=== PATIENT | female | born 1985 | race African-American/Black ===

== ENCOUNTER 2016-09-09 17:50 | Inpatient (IN) | payer MEDICAID ==
[~2016-09-09] VITALS: Ht 160 cm; Wt 67.0 kg
[2016-09-09 18:23] VITALS: Ht 160 cm; Wt 67.0 kg
[2016-09-09] MEDS ORDERED: CEFAZOLIN 2 GM/50 ML (PMX) 50 ML IV SCH (18:30)
[2016-09-09] MEDS ORDERED: OXYTOCIN 30 UNITS/LR 500 ML IV SCH (18:30)
[2016-09-09] MEDS ORDERED: CARBOPROST 250 MCG INJ IM PRN (18:30)
[2016-09-09] MEDS ORDERED: METHYLERGONOVINE 0.2 MG INJ IM PRN (18:30)
[2016-09-09] MEDS ORDERED: OXYTOCIN 30 UNITS/LR 500 ML IV PRN (18:30)
[2016-09-09] MEDS ORDERED: MISOPROSTOL 200 MCG TAB PR PRN (18:30)
[2016-09-09 19:00] LABS: INR 0.97; PARTIAL THROMBOPLASTIN TIME 26.8 Sec (25.0-35.0); PROTIME 12.9 Sec (12.2-14.2)
[2016-09-09 19:02] LABS: BASOPHILS % 0.3 % (0.0-2.0); EOSINOPHILS # 0.2 10^3/ul (0.0-0.5); EOSINOPHILS % 2.8 % (0.0-7.0); HEMATOCRIT 38.7 % (37.0-47.0); HEMOGLOBIN 12.6 g/dl (12.0-16.0); LYMPHOCYTES # 1.4 10^3/ul (0.8-2.9); MEAN CORPUSCULAR HEMOGLOBIN 27.2 pg (29.0-33.0); MEAN CORPUSCULAR HGB CONC 32.7 g/dl (32.0-37.0); MEAN CORPUSCULAR VOLUME 83.4 fl (82.0-101.0); MONOCYTE # 0.5 10^3/ul (0.3-0.9); MONOCYTES % 7.6 % (0.0-11.0); NEUTROPHIL # 4.5 10^3/ul (1.6-7.5); NEUTROPHILS % 68.3 % (39.0-77.0); PLATELET COUNT 124 10^3/UL (140-440); RED BLOOD COUNT 4.65 10^6/ul (4.20-5.40); RED CELL DISTRIBUTION WIDTH 13.7 % (11.5-14.5); UNCORRECTED WBC 6.5 10^3/ul (4.8-10.8); WHITE BLOOD COUNT 6.5 10^3/ul (4.8-10.8)
[2016-09-09 19:04] LABS: CONDITION 1; LH ANALYZER COMMENTS 1; SUSPECT 1
[2016-09-09] MEDS ORDERED: LACTATED RINGER'S 1,000 ML IV ONE ×2 (19:30→19:42)
[2016-09-09] MEDS ORDERED: CITRIC ACID/NA CITRATE 30 ML CUP ONE (19:42)
[2016-09-09] MEDS ORDERED: ONDANSETRON 4 MG INJ ONE (19:43)
[2016-09-09] MEDS ORDERED: ONDANSETRON 4 MG INJ IV ONE (20:00)
[2016-09-09] MEDS ORDERED: CITRIC ACID/NA CITRATE 30 ML CUP PO ONE (20:00)
[2016-09-09] MEDS ORDERED: FENTAnyl 50 MCG/ML VIAL ONE (20:18)
[2016-09-09] MEDS ORDERED: morphine SULFATE/PF (10 MG/10 ML) INJ ONE (20:19)
[2016-09-09] MEDS ORDERED: METOCLOPRAMIDE 10 MG INJ ONE (20:32)
[2016-09-09] MEDS ORDERED: EPHEDrine SULFATE 50 MG/5 ML SYG ONE (20:37)
[2016-09-09] MEDS ORDERED: DIPHENHYDRAMINE 50 MG INJ ONE (20:39)
[2016-09-09] MEDS ORDERED: OXYTOCIN 30 UNITS/LR 500 ML IV ONE (20:41)
--- NOTE | 2016-09-09 21:09 | PREOPHP ---
DATE OF ADMISSION: 09/09/2016 HISTORY OF PRESENT ILLNESS: A 31-year-old female 2, para 1, estimated date of delivery, , at 38 weeks gestation is admitted for delivery per recommendation of perinatologist due to intrauterine growth restriction. PAST MEDICAL HISTORY: History of syphilis for which the patient was treated earlier in . PAST SURGICAL HISTORY: section. ALLERGIES: NO KNOWN ALLERGIES. FAMILY HISTORY: Noncontributory. PHYSICAL EXAMINATION: VITAL SIGNS: The patient is afebrile. Vital signs stable. HEAD, NECK, AND CHEST: Within normal limits. ABDOMEN: Soft, nontender and gravid. EXTREMITIES: Within normal limits. NEUROLOGIC: Within normal limits. IMPRESSION: 1. at 38 weeks with previous section. 2. Intrauterine growth restriction. 3. The patient does not desire a trial of labor. PLAN: Delivery by repeat section. Risks, benefits, and alternatives of the procedure were explained to patient. The patient said she understood and gave informed consent for the procedure. Dictated By: PEARL NOLAN/JENNIFER Conf#: [id number] DID#: [id number]
[2016-09-09] MEDS ORDERED: morphine 2 MG INJ IV PRN ×2 (21:30)
[2016-09-09] MEDS ORDERED: ONDANSETRON 4 MG INJ IV PRN (21:30)
[2016-09-09] MEDS ORDERED: DIPHENHYDRAMINE 50 MG INJ IV PRN (21:30)
[2016-09-09] MEDS ORDERED: PROCHLORPERAZINE 10 MG INJ IV PRN (21:30)
[2016-09-09] MEDS ORDERED: NALOXONE (0.4 MG/ML) INJ IV PRN (21:30)
--- NOTE | 2016-09-09 22:26 | OPR ---
DATE OF OPERATION: 09/09/2016 PREOPERATIVE DIAGNOSES: at 38 weeks with previous section and intrauterine growth restriction. POSTOPERATIVE DIAGNOSES: at 38 weeks with previous section and intrauterine growth restriction. OPERATION PERFORMED: Repeat low transverse section. SURGEON: Pearl Cueto MD TROLLEY CAR MECHANIC: Neno Albrecht MD ANESTHESIA: Spinal. ANESTHESIOLOGIST: Marcelle Guerrier MD PROCEDURE: The patient was taken to the operating room and placed on the operating table. After successful spinal anesthesia was given, the patient ___ _ was placed in supine position. The area was prepared and draped in the usual sterile fashion. Spinal anesthesia was tested and was satisfactory. Using scalpel, Pfannenstiel incision was made about 2 fingerbreadths above the symphysis pubis. The incision was carried to the fascia. The fascia was incised and extended bilaterally with Crowder scissors. Two Kochers were used to separate the fascia from the muscle. The muscle was dissected on down to peritoneum. The peritoneum was secured with 2 Kellys and incised with Metzenbaum scissors. Using scalpel, a small transverse incision was made in the lower segment of uterus. Upon entering the uterine cavity, bandage scissors were inserted to extend the incision bilaterally, curved up. Baby was delivered from cephalic presentation. After suctioning clear of amniotic fluid , baby was handed off to team in attendance. Apgars were 8 and 9. The placenta was delivered without difficulty. The uterus was closed with #1 Monocryl continuous locked. After assuring hemostasis, both ovaries and tubes were inspected, all looked normal. The peritoneal cavity was irrigated with warm saline. The peritoneum was closed with 2-0 Vicryl continuous. The fascia was closed with #1 Vicryl continuous in 2 segments. The skin was closed with marti. ESTIMATED BLOOD LOSS: 500 mL COMPLICATIONS: None. COUNTS: Lap, instrument and needle counts were correct x2. Dictated By: PEARL CUETO MD GD/NTS Conf#: [id number] DID#: [id number] MTDD
--- NOTE | 2016-09-09 23:53 | DELSUM ---
Delivery Summary A-C Datetime Report Generated by CPN: 09/09/2016 23:53 DELIVERY PERSONNEL Picking Crew Supervisor: [place], Janet Xiomara MATERNAL INFORMATION Delivery Anesthesia: Spinal Medications in Delivery: SEE ANESTHESIA Estimated Blood Loss (ml): 500 Placenta Cultured: Yes Maternal Complications: Other Other Maternal Complications: HX RPR POSITIVE LABOR SUMMARY EDC: 09/23/2016 00:00 No. Babies in Womb: 1 Attempted: No Labor Anesthesia: Intrathecal LABOR INFORMATION Reason for Induction: Not Applicable Oxytocin: N/A Group B Beta Strep: Negative Group B Beta Strep: Not Done Antibiotics # of Doses: 1 Antibiotics Time of Last Dose: 2030 Steroids Given: None Reason Steroids Not Administered: Not Applicable MEMBRANES Membranes Rupture Method: Artificial Rupture of Membranes: 09/09/2016 20:51 Length of Rupture (hr): 0.02 Amniotic Fluid Color: Clear Amniotic Fluid Amount: Moderate Amniotic Fluid Odor: Normal STAGES OF LABOR Stage 3 hr: 0 Stage 3 min: 1 CSECTION DELIVERY Primary Indication: Repeat Elective CSection Urgency: Elective CSection Incidence: Repeat Labor: No Labor Elective: Elective CSection Incision: Lower Uterine Transverse BABY A INFORMATION Delivery Date/Time: 09/09/2016 20:52 Method of Delivery: Born in Route : No : N/A Forceps: N/A Vacuum Extraction: N/A Shoulder Dystocia : N/A SHOULDER DYSTOCIA BABY A Infant Delivery Date/Time: 09/09/2016 20:52 PRESENTATION/POSITION BABY A Presentation: Cephalic Cephalic Presentation: Vertex Vertex Position: Left Occipital Anterior Breech Presentation: N/A PLACENTA INFORMATION BABY A Placenta Delivery Time : 09/09/2016 20:53 Placenta Method of Delivery: Manual Removal Placenta Status: Delivered SCORES BABY A Heart Rate 1 min: >100 bpm Resp Effort 1 min: Good Cry Reflex Irritability 1 min: Cough/Sneeze/Pulls Away Muscle Tone 1 min: Active Motion Color 1 min: Blue/Pale Resuscitation Effort 1 min: Tactile Stimulation SCORE 1 MIN: 8 Heart Rate 5 min: >100 bpm Resp Effort 5 min: Good Cry Reflex Irritability 5 min: Cough/Sneeze/Pulls Away Muscle Tone 5 min: Active Motion Color 5 min: Body [place], Extremit Blue Resuscitation Effort 5 min: Tactile Stimulation SCORE 5 MIN: 9 INFORMATION BABY A Gestational Age at Delivery: 38.0 Gestational Status: Early Term- 37- 38.6 Weeks Infant Outcome : Liveborn Condition : Stable Sex: Male IDENTIFICATION/MEDS BABY A ID Band Number: [id number] ID Band Location: Right Leg; Left Arm Sensor Applied: Yes Sensor Number: [id number] Sensor Location : Cord Clamp Vitamin K Given : Not Given Erythromycin Given: Not Given WEIGHT/LENGTH BABY A Birthweight (gm): 2525 Weight (lb): 5 Weight (oz): 9 Infant Length (in): 18.00 Length (cm): 45.72 CORD INFORMATION BABY A No. Cord Vessels: 3 Nuchal Cord : N/A Cord Blood Taken: Yes Suction: Mouth; Nose ASSESSMENT BABY A Infant Complications: None Physical Findings at Delivery: Within Normal Limits Infant Respirations: Appears Normal Spirits Model/ALS Called : No Infant Care By: MICHAEL GOMEZ RN Transferred To: Remains with Mother
--- NOTE | 2016-09-10 00:10 | DELSUM ---
Delivery Summary A-C Datetime Report Generated by CPN: 09/10/2016 00:09 DELIVERY PERSONNEL Tire Retreader: [place], Janet Xiomara MATERNAL INFORMATION Delivery Anesthesia: Spinal Medications in Delivery: SEE ANESTHESIA Estimated Blood Loss (ml): 500 Placenta Cultured: Yes Maternal Complications: Other Other Maternal Complications: HX RPR POSITIVE LABOR SUMMARY EDC: 09/23/2016 00:00 No. Babies in Womb: 1 Attempted: No Labor Anesthesia: Intrathecal LABOR INFORMATION Reason for Induction: Not Applicable Oxytocin: N/A Group B Beta Strep: Negative Group B Beta Strep: Not Done Antibiotics # of Doses: 1 Antibiotics Time of Last Dose: 2030 Steroids Given: None Reason Steroids Not Administered: Not Applicable MEMBRANES Membranes Rupture Method: Artificial Rupture of Membranes: 09/09/2016 20:51 Length of Rupture (hr): 0.02 Amniotic Fluid Color: Clear Amniotic Fluid Amount: Moderate Amniotic Fluid Odor: Normal STAGES OF LABOR Stage 3 hr: 0 Stage 3 min: 1 CSECTION DELIVERY Primary Indication: Repeat Elective CSection Urgency: Elective CSection Incidence: Repeat Labor: No Labor Elective: Elective CSection Incision: Lower Uterine Transverse BABY A INFORMATION Delivery Date/Time: 09/09/2016 20:52 Method of Delivery: Born in Route : No : N/A Forceps: N/A Vacuum Extraction: N/A Shoulder Dystocia : N/A SHOULDER DYSTOCIA BABY A Infant Delivery Date/Time: 09/09/2016 20:52 PRESENTATION/POSITION BABY A Presentation: Cephalic Cephalic Presentation: Vertex Vertex Position: Left Occipital Anterior Breech Presentation: N/A PLACENTA INFORMATION BABY A Placenta Delivery Time : 09/09/2016 20:53 Placenta Method of Delivery: Manual Removal Placenta Status: Delivered SCORES BABY A Heart Rate 1 min: >100 bpm Resp Effort 1 min: Good Cry Reflex Irritability 1 min: Cough/Sneeze/Pulls Away Muscle Tone 1 min: Active Motion Color 1 min: Blue/Pale Resuscitation Effort 1 min: Tactile Stimulation SCORE 1 MIN: 8 Heart Rate 5 min: >100 bpm Resp Effort 5 min: Good Cry Reflex Irritability 5 min: Cough/Sneeze/Pulls Away Muscle Tone 5 min: Active Motion Color 5 min: Body [place], Extremit Blue Resuscitation Effort 5 min: Tactile Stimulation SCORE 5 MIN: 9 INFORMATION BABY A Gestational Age at Delivery: 38.0 Gestational Status: Early Term- 37- 38.6 Weeks Infant Outcome : Liveborn Condition : Stable Sex: Male IDENTIFICATION/MEDS BABY A ID Band Number: [id number] ID Band Location: Right Leg; Left Arm Sensor Applied: Yes Sensor Number: [id number] Sensor Location : Cord Clamp Vitamin K Given : Not Given Erythromycin Given: Not Given WEIGHT/LENGTH BABY A Birthweight (gm): 2525 Weight (lb): 5 Weight (oz): 9 Infant Length (in): 18.00 Length (cm): 45.72 CORD INFORMATION BABY A No. Cord Vessels: 3 Nuchal Cord : N/A Cord Blood Taken: Yes Suction: Mouth; Nose ASSESSMENT BABY A Infant Complications: None Physical Findings at Delivery: Within Normal Limits Infant Respirations: Appears Normal Base Manager/ALS Called : No Infant Care By: MICHAEL GOMEZ RN Transferred To: Remains with Mother
--- NOTE | 2016-09-10 00:10 | OPRPT ---
Intraop Record Datetime Report Generated by CPN: 09/10/2016 00:09 Datetime: 09/10/2016 00:02 Sequential Compression Device: Yes Datetime: 09/09/2016 23:47 Sequential Compression Device: Yes Datetime: 09/09/2016 23:32 Sequential Compression Device: Yes Datetime: 09/09/2016 23:18 Sequential Compression Device: Yes Datetime: 09/09/2016 23:06 Sequential Compression Device: Yes Datetime: 09/09/2016 22:48 Sequential Compression Device: Yes Datetime: 09/09/2016 22:36 Sequential Compression Device: Yes Datetime: 09/09/2016 22:17 Sequential Compression Device: Yes Datetime: 09/09/2016 22:02 Sequential Compression Device: Yes Datetime: 09/09/2016 21:47 Sequential Compression Device: Yes Datetime: 09/09/2016 21:35 Sequential Compression Device: Yes Datetime: 09/09/2016 21:06 OR Number: 2 TIMES/PROCEDURE Arrive OR: 09/09/2016 20:15 Depart OR: 09/09/2016 21:30 Anesthesia Start: 09/09/2016 20:05 Anesthesia End: 09/09/2016 21:42 Surgery Start: 09/09/2016 20:46 Surgery End: 09/09/2016 21:28 Preoperative Dx: REPEAT SECTION Surgical Procedure: Section Postoperative Dx: REPEAT SECTION C/S Decision Time: 09/09/2016 18:00 C/S Decision to Incision (min): 166 Uterine Incision: 09/09/2016 20:50 PERSONNEL Surgeon: James Cueto Scrub: Kami Styles Anesthesia Care Provider: Chey Infant Care: See Delivery Summary for Infant Care Providers Others in OR: RT, BABY NURSE, FRIEND OF PT Anesthesia Type: Spinal ASA Level: I RISK FOR INJURY Mode of Arrival: Ambulate Procedure Time Out: Correct Patient Identity; Accurate Procedure Consent Form; Agreement on Procedu re to be Done; Correct Patient Position; Addressed Need to Administer Antibiotics or Fluids for Irri gation; Safety Precautions Based on Patient History or Medication Use; Allergies Reviewed Preoperative Information: Preoperative Checklist Reviewed; Allergies Reviewed; NPO Status Verified RISK FOR ANXIETY/KNOW DEFICIT Emotional Status: Calm/Relaxed; Talkative Interventions: Provided Education Based on Age and Identified Needs; Communicated Patient Concerns to Appropriate Members of the Health Care Team; Explained Sequence of Events and Perioperative Routi ne; Evaluated Response to Instructions RISK FOR PAIN Pain Teaching: Instructed on Pain Scale Pain Scale: 0.0 PREOPERATIVE OUTCOMES Preoperative Outcomes: Verbalizes/Indicates Decreased Anxiety, Ability to [place], Understanding of Pr ocedure and Sequence of Events. Questions Answered; Demonstrates Adequate Pain Management; Verbaliz es Comfort Related to Transfer/Transport RISK FOR INFECTION Skin Pre-Operative Site: Intact Clip: Clip Clip Location: LOWER ABDOMEN Prep: Yes Prep By: CLAUDIA MACKEY RN Prep Solution: Chlorohexadine Catheter: Stoner Catheter Size: 16 Catheter Inserted By: Emmett HARLEY RN Surgical Wound Class: [id number] Dressing Type: Secured Gauze; Other Other Dressing Types: ABD TELFA Risk for Impaired Skin Integrity Position in OR: Supine Bony Prominences Protection: Arms Tucked/Padded Positioning Devices: N/A Risk for Hypothermia Warming Interventions: Warm [place](s); Warm Irrigation Warming Unit Temp Settin.0 Warming Device Number: [id number] Risk for Injury Safety Straps Applied: Legs Sequential Compression Device: Yes Electrosurgical Unit: Yes Electrosurgical Unit Number: [id number] Bipolar Number: [id number] EXP 05/29/2018 Ground Pad Location: Right Anterior Thigh Coag Number: 55 Cut Number: 55 Estimated Blood Loss- OR (ml): 500 1st Count Sponge Count: Correct Needle Count: Correct Blade Count: Correct Instrument Count: Correct 2nd Count Sponge Count: Correct Needle Count: Correct Blade Count: Correct Instrument Count: Not Done 3rd Count Sponge Count: Correct Needle Count: Correct Blade Count: Correct Instrument Count: Not Done Final Count Sponge Count 4: Correct Needle Count 4: Correct Blade Count 4: Correct Instrument Count 4: Correct Surgeon Acknowledged Count: Yes Final Count Resolution: Count Correct Intraoperative Data Equipment: Non-Invasive Blood Pressure; Pulse Oximeter; EKG Blood Products Given: No Implants/Prosthesis Implants/Prosthesis: N/A Grafts: N/A Irrigation Irrigants: NACL; Sterile H2O Irrigation Amount: 1000 ML EACH Specimens Specimens: Yes Specimen Type: Placenta Disposition: PATHOLOGY Cultures Cultures: N/A X-Ray X-Ray Taken: No Postoperative Skin: Warm; Dry Pain Scale: 0 Condition: Alert Temperature: 97.6 Operative Outcomes: Patient's Surgery Performed Using Aseptic Technique and in a Manner to Prevent Cross-Contamination; Skin Remains Smooth, Intact, Non-reddened, Non-irritated, Free of Bruising; Cor e Body Temperature Remains in Expected Range Transfer To: L_D Datetime: 09/09/2016 18:19 Food Allergies/Reactions: none Latex Allergies/Reactions: No Latex Allergies Datetime: 09/09/2016 18:10 Drug Allergies/Reactions: No Known Allergy (09/09/2016)
[2016-09-10] MEDS: KETOROLAC 30 MG INJ IV PRN ×3 (00:12→18:57)
[2016-09-10 00:30] VITALS: BP 141/84; PULSE 73; RESP 21
[2016-09-10] MEDS ORDERED: OXYCODONE/ACETAMINOPHEN (5/325) TAB PO PRN (01:00)
[2016-09-10] MEDS ORDERED: MISOPROSTOL 200 MCG TAB PR PRN (01:00)
[2016-09-10] MEDS ORDERED: CARBOPROST 250 MCG INJ IM PRN (01:00)
[2016-09-10] MEDS ORDERED: METHYLERGONOVINE 0.2 MG INJ IM PRN (01:00)
[2016-09-10] MEDS ORDERED: OXYTOCIN 30 UNITS/LR 500 ML IV PRN (01:00)
[2016-09-10] MEDS: OXYTOCIN 30 UNITS/LR 500 ML IV SCH ×2 (02:29→06:20)
[2016-09-10 04:01] VITALS: BP 118/64; PULSE 79; RESP 20
[2016-09-10 06:30] LABS: EOSINOPHILS # 0.1 10^3/ul (0.0-0.5); EOSINOPHILS % 1.3 % (0.0-7.0); HEMATOCRIT 33.2 % (37.0-47.0); HEMOGLOBIN 10.9 g/dl (12.0-16.0); LYMPHOCYTES # 1.2 10^3/ul (0.8-2.9); LYMPHOCYTES % 15.6 % (15.0-51.0); MEAN CORPUSCULAR HEMOGLOBIN 27.5 pg (29.0-33.0); MEAN CORPUSCULAR HGB CONC 32.8 g/dl (32.0-37.0); MEAN CORPUSCULAR VOLUME 83.8 fl (82.0-101.0); MEAN PLATELET VOLUME 9.5 fl (7.4-10.4); MONOCYTE # 0.5 10^3/ul (0.3-0.9); MONOCYTES % 6.5 % (0.0-11.0); NEUTROPHILS % 76.6 % (39.0-77.0); PLATELET COUNT 104 10^3/UL (140-440); RED BLOOD COUNT 3.96 10^6/ul (4.20-5.40); RED CELL DISTRIBUTION WIDTH 13.6 % (11.5-14.5); UNCORRECTED WBC 7.9 10^3/ul (4.8-10.8); WHITE BLOOD COUNT 7.9 10^3/ul (4.8-10.8)
[2016-09-10 06:35] LABS: CONDITION 1
[2016-09-10] MEDS: LACTATED RINGER'S 1,000 ML IV SCH ×2 (07:49→10:45)
[2016-09-10] MEDS: IBUPROFEN 800 MG TAB PO SCH ×3 (07:49→21:32)
[2016-09-10 08:00] VITALS: BP 113/69; PULSE 79; RESP 18
[2016-09-10 09:35] LABS: RAPID PLASMA REAGIN REACTIVE (NR)
[2016-09-10] MEDS: SENNA/DOCUSATE NA (8.6MG/50MG) TAB PO SCH ×2 (10:43→21:32)
[2016-09-10] MEDS: LANOLIN 7 GM TUBE TOP PRN (10:44)
[2016-09-10 12:00] VITALS: BP 115/63; PULSE 79; RESP 19
[2016-09-10 16:00] VITALS: BP 125/66; PULSE 78; RESP 19
[2016-09-10 19:35] VITALS: BP 119/76; PULSE 73; RESP 18
[2016-09-10] MEDS ORDERED: IBUPROFEN 800 MG TAB PO SCH (22:00)
[2016-09-11] MEDS: LACTATED RINGER'S 1,000 ML IV SCH ×2 (00:55→08:55)
[2016-09-11] MEDS: OXYCODONE/ACETAMINOPHEN (5/325) TAB PO PRN ×3 (03:48→17:20)
[2016-09-11 04:25] VITALS: BP 110/59; PULSE 76; RESP 18
[2016-09-11] MEDS: IBUPROFEN 800 MG TAB PO SCH ×3 (06:16→20:31)
[2016-09-11 06:41] LABS: BASOPHILS % 0.4 % (0.0-2.0); EOSINOPHILS # 0.1 10^3/ul (0.0-0.5); HEMATOCRIT 29.2 % (37.0-47.0); HEMOGLOBIN 9.6 g/dl (12.0-16.0); LYMPHOCYTES # 1.1 10^3/ul (0.8-2.9); LYMPHOCYTES % 16.7 % (15.0-51.0); MEAN CORPUSCULAR HEMOGLOBIN 27.5 pg (29.0-33.0); MEAN CORPUSCULAR HGB CONC 32.8 g/dl (32.0-37.0); MEAN PLATELET VOLUME 9.6 fl (7.4-10.4); MONOCYTE # 0.4 10^3/ul (0.3-0.9); MONOCYTES % 6.3 % (0.0-11.0); NEUTROPHIL # 4.9 10^3/ul (1.6-7.5); NEUTROPHILS % 74.6 % (39.0-77.0); PLATELET COUNT 108 10^3/UL (140-440); RED BLOOD COUNT 3.48 10^6/ul (4.20-5.40); RED CELL DISTRIBUTION WIDTH 13.6 % (11.5-14.5); UNCORRECTED WBC 6.5 10^3/ul (4.8-10.8); WHITE BLOOD COUNT 6.5 10^3/ul (4.8-10.8)
[2016-09-11 06:55] LABS: CONDITION 1
[2016-09-11 08:45] VITALS: BP 114/67; PULSE 83; RESP 18
[2016-09-11] MEDS: SENNA/DOCUSATE NA (8.6MG/50MG) TAB PO SCH ×2 (09:27→20:31)
[2016-09-11 17:20] VITALS: BP 114/67; PULSE 83; RESP 18
[2016-09-11 20:30] VITALS: BP 105/62; PULSE 82; RESP 18
[2016-09-12] MEDS: OXYCODONE/ACETAMINOPHEN (5/325) TAB PO PRN ×4 (00:04→18:03)
[2016-09-12] MEDS: IBUPROFEN 800 MG TAB PO SCH ×3 (05:45→22:26)
[2016-09-12 08:00] VITALS: BP 104/71; PULSE 71; RESP 20
[2016-09-12] MEDS: SENNA/DOCUSATE NA (8.6MG/50MG) TAB PO SCH ×2 (08:25→21:25)
[2016-09-12] MEDS ORDERED: DIPHTH/TET/ACEL PERTUSS (ADULT) 0.5 ML VIAL IM* ONE (09:00)
[2016-09-12] MEDS ORDERED: MAGNESIUM HYDROXIDE 30ML CUP PO ONE (11:00)
[2016-09-12 11:26] VITALS: BP 121/77; PULSE 79; RESP 20
[2016-09-12 17:18] VITALS: BP 127/84; PULSE 95; RESP 20
[2016-09-12 19:50] VITALS: BP 135/82; PULSE 68; RESP 19
[2016-09-12] MEDS: LANOLIN 7 GM TUBE TOP PRN (21:26)
[2016-09-12] MEDS ORDERED: BISACODYL 10 MG SUPP PR ONE (23:00)
--- NOTE | 2016-09-13 00:17 | DS ---
DATE OF ADMISSION: 09/09/2016 DATE OF DISCHARGE: 09/13/2016 ADMITTING DIAGNOSES: at 38 weeks with previous section, intrauterine growth rest riction. HISTORY: A 31-year-old female 2, para 1 at the time of admission, para 2 at the time of dis charge at 38 weeks gestation, was admitted for delivery per recommendation of perinatologist due to intrauterine growth restriction. PAST SURGICAL HISTORY: Significant for section. HOSPITAL COURSE: On 09/09/2016, after obtaining informed consent, the patient underwent a repeat lo w transverse section. The patient's operation was uncomplicated. Postoperatively, the pat ient was given a clear liquid diet, which was advanced to regular diet, which she tolerated well. T he patient is discharged on postop day #4 after having had adequate bladder and bowel function. CONDITION ON DISCHARGE: Stable. DISCHARGE INSTRUCTIONS: DIET: Regular. ACTIVITIES: Pelvic rest and no strenuous activities. MEDICATIONS: 1. Motrin as needed for pain. 2. Continue with vitamins. 3. Ferrous sulfate. FOLLOWUP: In clinic in 1 week. FINAL DIAGNOSES: 1. Term delivered by section. 2. Previous section. 3. Intrauterine growth restriction. 4. Mother with single liveborn. Dictated By: PEARL NOLAN/JENNIFER Conf#: [id number] DID#: [id number]
[2016-09-13 04:10] VITALS: BP 123/75; PULSE 72; RESP 18
[2016-09-13] MEDS: OXYCODONE/ACETAMINOPHEN (5/325) TAB PO PRN ×3 (04:16→15:53)
[2016-09-13] MEDS: IBUPROFEN 800 MG TAB PO SCH ×2 (06:33→15:51)
[2016-09-13 08:15] VITALS: BP 118/80; PULSE 79; RESP 19
[2016-09-13] MEDS: SENNA/DOCUSATE NA (8.6MG/50MG) TAB PO SCH (10:05)
== END 2016-09-13 18:10 | disposition home or self-care (01) | DRG 765 ==
LOC: L-D 17:50 → PP1 09-10 00:33
PROVIDERS: ADMIT Obstetrics & Gynecology; ATTEND Obstetrics & Gynecology
PROC: 10D00Z1 Extraction of Products of Conception, Low, Open Approach (ICD-10-PCS; principal; 2016-09-09 21:00)
DX: O34.211 Maternal care for low transverse scar from previous cesarean delivery (principal); O36.5930 Maternal care for other known or suspected poor fetal growth, third trimester, not applicable or unspecified; Z3A.38 38 weeks gestation of pregnancy; Z37.0 Single live birth
CPT/HCPCS: 85025; 85610; 85730; 86592; 86850; 86900; 86901; 87340; 88307; 90715; 99464; J0690; J1200; J1885; J2210; J2270; J2274; J2405; J2590; J2765; J3010; J7120